=== PATIENT | female | born 1945 | race Caucasian/White ===

== ENCOUNTER 2018-03-03 00:17 | Emergency (ER) | payer OTHER, BC ==
[~2018-03-03] VITALS: Ht 157.5 cm; Wt 91.5 kg
[2018-03-03] MEDS ORDERED: AUGMENTIN875 MG PO (01:23)
[2018-03-03 01:30] VITALS: BP 192/109
== END 2018-03-03 01:31 | disposition home or self-care (01) ==
LOC: EME 00:17 → EXP 00:17
PROC: 3E0234Z Introduction of Serum, Toxoid and Vaccine into Muscle, Percutaneous Approach (ICD-10-PCS; principal; 2018-03-03)
DX: S61.032A Puncture wound without foreign body of left thumb without damage to nail, initial encounter (principal); S61.031A Puncture wound without foreign body of right thumb without damage to nail, initial encounter; S61.230A Puncture wound without foreign body of right index finger without damage to nail, initial encounter; W55.01XA Bitten by cat, initial encounter; Z23 Encounter for immunization
CPT/HCPCS: 99281; 99283